=== PATIENT | male | born 1980 | race African-American/Black ===

== ENCOUNTER 2017-10-04 15:18 | Emergency (ER) | payer SELFPAY ==
[~2017-10-04] VITALS: Ht 177.8 cm; Wt 109.8 kg
[~2017-10-04 15:18] MED LIST: [UNRECOGNIZED DRUG - REMARK]
[2017-10-04 15:29] VITALS: BP 156/78
--- NOTE | 2017-10-04 15:42 | NUR ---
PT AMBULATED TO BED 4.
--- NOTE | 2017-10-04 15:45 | NUR ---
37M BIB FAMILY C/O RIGHT LOWER ABDOMINAL PAIN, ACHING, RADIATES TO LEFT LOWER ABDOMEN AND TESTICLES, 07/05 X 3 DAYS; PT STATES NO NAUSEA, NO VOMITING AND NO DIARRHEA AT THIS TIME, BUT STATES HAS HAD CONSTIPATION X 3 DAYS, WITH LAST BOWEL MOVEMENT ON 10/01/17; ABDOMEN SOFT, NON-TENDER, ACTIVE BOWEL SOUNDS X 4 QUADRANTS; PT AA&OX4, PERRLA, BL LUNG SOUNDS CLEAR, RR EVEN/UNLABORED, SKIN IS WARM/DRY/INTACT AT THIS TIME; STEADY GAIT; PT RESTING IN BED WITH HOB ELEVATED AND IN LOWEST POSITION; POSITIONED FOR COMFORT; ER MD MADE AWARE OF STATUS. WILL CONTINUE TO MONITOR.
--- NOTE | 2017-10-04 15:55 | NUR ---
ER MD DR. AMATO EVALUATING PT AT BEDSIDE.
[2017-10-04] MEDS ORDERED: ONDANSETRON 4 MG/2 ML VIAL IVP ONE (16:10)
[2017-10-04] MEDS ORDERED: MORPHINE SULFATE 2 MG/ML SYR IVP ONE (16:10)
[2017-10-04] MEDS ORDERED: MORPHINE SULFATE 4 MG/ML SYR ONE (16:42)
--- NOTE | 2017-10-04 16:49 | NUR ---
PT TAKEN TO CT VIA W/C ACCOMPANIED BY [employer] SUPERVISOR.
[2017-10-04 16:57] LABS: BASOPHILS # (AUTO) 0.3 K/uL (0.00-0.22); BASOPHILS % (AUTO) 3.4 % (0.0-2.0); EOSINOPHILS # (AUTO) 0.2 K/uL (0-0.4); EOSINOPHILS % (AUTO) 1.8 % (0.0-4.0); HEMATOCRIT 40.5 % (36-52); HEMOGLOBIN 13.4 g/dL (12.0-18.0); LYMPHOCYTES # (AUTO) 1.8 K/uL (2.0-11.5); LYMPHOCYTES % (AUTO) 21.4 % (20.5-51.1); MEAN CORPUSCULAR HEMOGLOBIN 30 pg (27-31); MEAN CORPUSCULAR HGB CONC 33 g/dL (33-37); MEAN CORPUSCULAR VOLUME 90 fL (80-94); MONOCYTES # (AUTO) 0.6 K/uL (0.8-1.0); MONOCYTES % (AUTO) 6.9 % (1.7-9.3); NEUTROPHILS # (AUTO) 5.6 K/uL (1.8-7.7); NEUTROPHILS % (AUTO) 66.5 % (42.2-75.2); PLATELET COUNT (AUTO) 244 K/uL (140-450); RED CELL DISTRIBUTION WIDTH 14.1 % (11.6-13.7); WHITE BLOOD COUNT (AUTO) 8.5 K/uL (4.8-10.8)
[2017-10-04 17:05] LABS: APPEARANCE,URINE CLEAR (CLEAR); BILIRUBIN,URINE NEGATIVE (NEGATIVE); BLOOD, URINE NEGATIVE (NEGATIVE); COLOR,URINE YELLOW (YELLOW); LEUKOCYTE ESTERASE ,URINE NEGATIVE (NEGATIVE); NITRITE, URINE NEGATIVE (NEGATIVE); UGLUCOSE NEGATIVE (NEGATIVE)
[2017-10-04 17:18] LABS: ALBUMIN 3.2 g/dL (3.4-5.0); ANION GAP 10.8 (8-16); CARBON DIOXIDE 28.2 mmol/L (21-32); CREATININE 0.8 mg/dL (0.7-1.3); TOTAL BILIRUBIN 0.2 mg/dL (0.0-1.0)
[2017-10-04] MEDS ORDERED: LEVOFLOXACIN 750 MG TAB PO ONE (18:05)
[2017-10-04] MEDS ORDERED: metroNIDAZOLE 500 MG/NS PREMIX 100 ML IV ONE (18:05)
--- NOTE | 2017-10-04 18:30 | NUR ---
PT APPEARS TO BE RESTING COMFORTABLY IN BED; RR EVEN/UNLABORED; POSITIONED FOR COMFORT; WILL CONTINUE TO MONITOR.
--- NOTE | 2017-10-04 19:03 | NUR ---
Pt report given to ZEINAB VIGIL. Transfer of care at this time.
--- NOTE | 2017-10-04 19:39 | NUR ---
IV removed, catheter intact and site benign. Applied folded 4x4 gauze and tape to stop bleeding.
[2017-10-04 19:40] VITALS: BP 134/86
--- NOTE | 2017-10-04 19:40 | NUR ---
Patient discharged with v/s stable. Written and verbal after care instructions given and explained. Patient alert, oriented and verbalized understanding of instructions. Ambulatory with steady gait. All questions addressed prior to discharge. ID band removed. Patient advised to follow up with PMD. Rx of Tramadol 50mg, Flagyl 500mg, and Cipro 500mg given. Patient educated on indication of medication including possible reaction and side effects. Opportunity to ask questions provided and answered.
== END 2017-10-04 19:40 | disposition home or self-care (01) ==
LOC: MED 15:18
DX: K57.92 Diverticulitis of intestine, part unspecified, without perforation or abscess without bleeding (principal); Z88.8 Allergy status to other drugs, medicaments and biological substances
CPT/HCPCS: 36415; 74176; 80053; 81003; 83690; 85025; 96365; 96375; 99285; J2270; J2405; J3490

== ENCOUNTER 2019-04-17 22:54 | Emergency (ER) | payer SELFPAY ==
[~2019-04-17] VITALS: Ht 172.7 cm; Wt 111.1 kg
[2019-04-17 23:00] VITALS: BP 159/89
--- NOTE | 2019-04-17 23:00 | NUR ---
PT TAKEN TO BED 6
--- NOTE | 2019-04-17 23:11 | NUR ---
PT BIB SELF TO THE ED WITH THE CHIEF C/O FACIAL PAIN X 2 DAYS. SWOLLEN RIGHT SIDE OF THE FACE. PT STATES HE HAD TOOTCHACHE BEFORE, SYMPTOMS GOT WORSE AND GOT SWOLLEN FACE. PT HAS NOT SEEN BY DENTIST. DENIES PUS OR BLEEDING GUM. PT TOOK MOTRIN AN HOUR AGO. STATES PAIN OF 8/10 AT THIS TIME. DENIES ANY OTHER PROBLEM.
--- NOTE | 2019-04-17 23:18 | NUR ---
PT BEING EVALUATED BY BENNIE MUNGUIA.
--- NOTE | 2019-04-17 23:18 | NUR ---
Dr. Velazco evaluating patient at bedside.
[2019-04-17] MEDS ORDERED: PENICILLIN V POTASSIUM 250 MG TAB PO ONE (23:25)
--- NOTE | 2019-04-18 00:13 | NUR ---
Patient discharged with v/s stable. Written and verbal after care instructions given and explained. Patient alert, oriented and verbalized understanding of instructions. Ambulatory with steady gait. All questions addressed prior to discharge. ID band removed. Patient advised to follow up with PMD. Rx of NORCO, PENICILLIN, BENADRYL AND IBUPROFEN given. Patient educated on indication of medication including possible reaction and side effects. Opportunity to ask questions provided and answered.
[2019-04-18 00:14] VITALS: BP 155/99
== END 2019-04-18 00:13 | disposition home or self-care (01) ==
LOC: MED 22:54
DX: K04.7 Periapical abscess without sinus (principal); Z88.8 Allergy status to other drugs, medicaments and biological substances
CPT/HCPCS: 99283; Q0163

== ENCOUNTER 2019-07-21 19:08 | Emergency (ER) | payer SELFPAY ==
[~2019-07-21] VITALS: Ht 172.7 cm; Wt 109.3 kg
[2019-07-21 19:14] VITALS: BP 165/81
--- NOTE | 2019-07-21 19:14 | NUR ---
PT AMBULATED TO BED 03 WITH STEADY GAIT.
--- NOTE | 2019-07-21 19:30 | NUR ---
39 YO M BIB SELF FROM HOME PRESENTS TO ED C/O N/V X 2-3 TODAY. PT STATES "I VOMITED BLOOD YESTERDAY". PT ALSO C/O URINARY PAIN AND BURNING X 2-3 WEEKS. ALSO REPORTS 10/10 RIGHT SIDE PINCHING LOWER BACK PAIN X 3 DAYS. PT STATES HE WORKS IN A [employer] SO HE MAY HAVE STRAINED HIS BACK. PT ALSO REPORTS FEVER, CHILLS. -- PT AWAKE, A/O X 4, CALM, COOPERATIVE. ANSWERING QUESTIONS APPROPRIATELY. BEHAVIOR AGE APPROPRIATE. -- SKIN NORMAL IN COLOR, WARM, DRY. BREATHING EVEN, UNLABORED. PMH-- DENIES
--- NOTE | 2019-07-21 19:47 | NUR ---
DR. BRIGHT BEDSIDE EVALUATING PT
[2019-07-21 19:49] LABS: APPEARANCE,URINE SL CLOUDY (CLEAR); BILIRUBIN,URINE NEGATIVE (NEGATIVE); BLOOD, URINE 3+ (NEGATIVE); COLOR,URINE YELLOW (YELLOW); LEUKOCYTE ESTERASE ,URINE 3+ (NEGATIVE); NITRITE, URINE POSITIVE (NEGATIVE); UGLUCOSE NEGATIVE (NEGATIVE)
[2019-07-21 19:59] LABS: RBC,URINE 0-5 /HPF (0-5); WBC,URINE TOO MANY TO COUNT /HPF (0-5)
--- NOTE | 2019-07-21 20:05 | NUR ---
LAB AT BEDSIDE.
--- NOTE | 2019-07-21 20:11 | NUR ---
PT TAKEN TO CT VIA [facility].
[2019-07-21 20:21] LABS: BASOPHILS # (AUTO) 0.1 K/uL (0.00-0.22); BASOPHILS % (AUTO) 0.7 % (0.0-2.0); EOSINOPHILS % (AUTO) 0.3 % (0.0-4.0); HEMATOCRIT 39.8 % (36-52); HEMOGLOBIN 13.6 g/dL (12.0-18.0); LYMPHOCYTES # (AUTO) 1.7 K/uL (2.0-11.5); LYMPHOCYTES % (AUTO) 14.3 % (20.5-51.1); MEAN CORPUSCULAR HEMOGLOBIN 30 pg (27-31); MEAN CORPUSCULAR HGB CONC 34 g/dL (33-37); MEAN CORPUSCULAR VOLUME 86.4 fL (80-94); MONOCYTES # (AUTO) 1.4 K/uL (0.8-1.0); MONOCYTES % (AUTO) 11.8 % (1.7-9.3); NEUTROPHILS # (AUTO) 8.4 K/uL (1.8-7.7); NEUTROPHILS % (AUTO) 72.9 % (42.2-75.2); PLATELET COUNT (AUTO) 272 K/uL (140-450); RED BLOOD CELL COUNT(AUTO) 4.61 MIL/uL (4.20-6.10); RED CELL DISTRIBUTION WIDTH 14.1 % (11.6-13.7); WHITE BLOOD COUNT (AUTO) 11.6 K/uL (4.8-10.8)
--- NOTE | 2019-07-21 20:26 | NUR ---
PT RETURNED FROM CT
[2019-07-21 20:28] LABS: ANION GAP 14.3 (8-16); CARBON DIOXIDE 25.3 mmol/L (21-32); POTASSIUM 3.6 mmol/L (3.5-5.1)
[2019-07-21 20:33] LABS: ALBUMIN 3.2 g/dL (3.4-5.0); TOTAL BILIRUBIN 0.3 mg/dL (0.0-1.0)
[2019-07-21 20:42] LABS: PROTHROMBIN TIME 9.8 secs (10.8-13.4)
[2019-07-21] MEDS ORDERED: NACL 0.9% 1,000 ML IV ONE (20:50)
[2019-07-21] MEDS ORDERED: cefTRIAXone 1,000 MG VIAL ONE ×2 (21:08→22:29)
--- NOTE | 2019-07-21 21:30 | NUR ---
PT SLEEPING COMFORTABLY IN BED. AROUSABLE TO VERBAL STIMULI. SKIN NORMAL, WARM, DRY. BREATHING EVEN, UNLABORED.
[2019-07-21] MEDS ORDERED: cefTRIAXone 250 MG in LIDOCAINE MPF 1% - 5 mL VIAL 0.9 ML IM ONE (22:10)
[2019-07-21] MEDS ORDERED: AZITHROMYCIN 250 MG TAB PO ONE (22:10)
[2019-07-21 22:45] VITALS: BP 147/86
[2019-07-24 06:08] LABS: CHLAMYDIA TRACHOMATIS AMP DNA Negative (Negative)
== END 2019-07-21 22:45 | disposition home or self-care (01) ==
LOC: MED 19:08
DX: N39.0 Urinary tract infection, site not specified (principal); A64 Unspecified sexually transmitted disease; Z88.8 Allergy status to other drugs, medicaments and biological substances
CPT/HCPCS: 36415; 74176; 80053; 81001; 83605; 85025; 85610; 86886; 86900; 86901; 87040; 87086; 96365; 96372; 99284; J0696; J2001

== ENCOUNTER 2019-09-16 19:02 | Emergency (ER) | payer SELFPAY ==
[~2019-09-16] VITALS: Ht 170.2 cm; Wt 86.2 kg
[2019-09-16 19:18] VITALS: BP 139/74
--- NOTE | 2019-09-16 19:18 | NUR ---
PT AMBULATED TO BED 11.
--- NOTE | 2019-09-16 19:22 | NUR ---
PT C/O LT TESTICLE SWELLING AND PAIN X2 DAYS. PT STATES BROWN PENILE DISCHARGE X3 DAYS. SCROTUM SENSITIVE TO TOUCH. PT STATES 2/1O SHARP PAIN. PT STATES HE HAS BEEN TAKING AMOXICILLIN A FAMILY MEMBER GAVE HIM SUNDAY. RR EVEN AND UNLABORED. PT CALM AND PLEASANT IN BED. VSS. MEDHX: DENIES ALLERGIES: LISINOPRIL
[2019-09-16] MEDS ORDERED: ONDANSETRON 4 MG/2 ML VIAL IVP ONE (19:25)
[2019-09-16] MEDS ORDERED: NACL 0.9% 1,000 ML IV ONE (19:25)
[2019-09-16] MEDS ORDERED: MORPHINE SULFATE 4 MG/ML SYR IVP ONE (19:25)
[2019-09-16 20:20] LABS: BASOPHILS % (AUTO) 0.2 % (0.0-2.0); EOSINOPHILS % (AUTO) 0.1 % (0.0-4.0); HEMATOCRIT 41.2 % (36-52); LYMPHOCYTES # (AUTO) 1.6 K/uL (2.0-11.5); LYMPHOCYTES % (AUTO) 10.5 % (20.5-51.1); MEAN CORPUSCULAR HEMOGLOBIN 29 pg (27-31); MEAN CORPUSCULAR HGB CONC 34 g/dL (33-37); MEAN CORPUSCULAR VOLUME 86.4 fL (80-94); MONOCYTES # (AUTO) 1.7 K/uL (0.8-1.0); MONOCYTES % (AUTO) 11.1 % (1.7-9.3); NEUTROPHILS # (AUTO) 11.8 K/uL (1.8-7.7); NEUTROPHILS % (AUTO) 78.1 % (42.2-75.2); PLATELET COUNT (AUTO) 237 K/uL (140-450); RED BLOOD CELL COUNT(AUTO) 4.77 MIL/uL (4.20-6.10); RED CELL DISTRIBUTION WIDTH 16.6 % (11.6-13.7); WHITE BLOOD COUNT (AUTO) 15.1 K/uL (4.8-10.8)
[2019-09-16 20:32] LABS: APPEARANCE,URINE CLOUDY (CLEAR); BILIRUBIN,URINE NEGATIVE (NEGATIVE); BLOOD, URINE 2+ (NEGATIVE); COLOR,URINE AMBER (YELLOW); LEUKOCYTE ESTERASE ,URINE 2+ (NEGATIVE); NITRITE, URINE POSITIVE (NEGATIVE); UGLUCOSE NEGATIVE (NEGATIVE)
--- NOTE | 2019-09-16 20:38 | NUR ---
PT RESTING IN BED WATCHING TV ON PHONE IN COMFORTABLE POSITON. STATES NO DISCOMFORT AT THIS TIME. BED LOCKED AND POSITIONED LOW. VSS. WILL CONTINUE TO MONITOR.
[2019-09-16 20:50] LABS: WBC,URINE TOO MANY TO COUNT /HPF (0-5)
[2019-09-16 21:02] LABS: ALBUMIN 3.4 g/dL (3.4-5.0); ANION GAP 15.5 (8-16); CARBON DIOXIDE 25.1 mmol/L (21-32); CREATININE 0.9 mg/dL (0.7-1.3); POTASSIUM 3.6 mmol/L (3.5-5.1); TOTAL BILIRUBIN 1.1 mg/dL (0.0-1.0)
[2019-09-16] MEDS ORDERED: cefTRIAXone 250 MG in LIDOCAINE MPF 1% 0.9 ML IM ONE (22:10)
[2019-09-16] MEDS ORDERED: AZITHROMYCIN 250 MG TAB PO ONE (22:10)
[2019-09-16 22:56] VITALS: BP 133/76
--- NOTE | 2019-09-16 22:56 | NUR ---
Patient discharged with v/s stable. Written and verbal after care instructions given and explained. Patient alert, oriented and verbalized understanding of instructions. Ambulatory with to home. All questions addressed prior to discharge. ID band removed. Patient advised to follow up with PMD. Rx of NAPROSYN, NORCO, AND DOXYCYCLINE given. Patient educated on indication of medication including possible reaction and side effects. Opportunity to ask questions provided and answered.
[2019-09-19 06:08] LABS: CHLAMYDIA TRACHOMATIS AMP DNA Negative (Negative)
== END 2019-09-16 22:56 | disposition home or self-care (01) ==
LOC: MED 19:02
DX: N39.0 Urinary tract infection, site not specified (principal); N50.812 Left testicular pain; Z88.8 Allergy status to other drugs, medicaments and biological substances
CPT/HCPCS: 36415; 76870; 80053; 81001; 85025; 87086; 87186; 87491; 96372; 96374; 96375; 99284; J0696; J2001; J2270; J2405; J7030; Q0092

== ENCOUNTER 2020-06-08 11:29 | Emergency (ER) | payer SELFPAY ==
[~2020-06-08] VITALS: Ht 172.7 cm; Wt 106.6 kg
--- NOTE | 2020-06-08 11:39 | NUR ---
PT AMBULATED TO ER BED 01
[2020-06-08 11:51] VITALS: BP 147/89
--- NOTE | 2020-06-08 13:04 | NUR ---
pt pending ultrasound--testicular
[2020-06-08] MEDS ORDERED: cefTRIAXone 250 MG in LIDOCAINE MPF 1% 0.9 ML IM ONE (14:40)
[2020-06-08] MEDS ORDERED: LIDOCAINE MPF 1% 5 ML ONE (15:14)
[2020-06-08] MEDS ORDERED: cefTRIAXone 250 MG VIAL ONE (15:14)
--- NOTE | 2020-06-08 15:25 | NUR ---
Patient discharged with v/s stable. Written and verbal after care instructions given and explained. Patient alert, oriented and verbalized understanding of instructions. Ambulatory with steady gait. All questions addressed prior to discharge. ID band removed. Patient advised to follow up with PMD. Rx of doxycycline/ norco given. Patient educated on indication of medication including possible reaction and side effects. Opportunity to ask questions provided and answered.
[2020-06-08 15:26] VITALS: BP 129/79
[2020-06-08 15:28] LABS: APPEARANCE,URINE SL CLOUDY (CLEAR); BILIRUBIN,URINE NEGATIVE (NEGATIVE); BLOOD, URINE TRACE-I (NEGATIVE); COLOR,URINE YELLOW (YELLOW); LEUKOCYTE ESTERASE ,URINE 2+ (NEGATIVE); NITRITE, URINE NEGATIVE (NEGATIVE); PH,URINE 6.5 (5.0-9.0); UGLUCOSE NEGATIVE (NEGATIVE)
[2020-06-08 15:44] LABS: RBC,URINE 0-5 /HPF (0-5)
[2020-06-10 06:07] LABS: CHLAMYDIA TRACHOMATIS AMP DNA Negative (Negative)
== END 2020-06-08 15:25 | disposition home or self-care (01) ==
LOC: MED 11:29
DX: N45.1 Epididymitis (principal); N43.3 Hydrocele, unspecified; Z88.8 Allergy status to other drugs, medicaments and biological substances
CPT/HCPCS: 36415; 76870; 81001; 87086; 87186; 87491; 96372; 99284; J0696; J2001; Q0092

== ENCOUNTER 2022-04-20 14:03 | Emergency (ER) | payer MEDICAID ==
[~2022-04-20] VITALS: Ht 172.7 cm; Wt 123.4 kg
[2022-04-20 14:09] VITALS: BP 138/79
--- NOTE | 2022-04-20 14:15 | NUR ---
C/C LEFT ARM PAIN X 1 MONTH WITH OCCASIONAL SWELLING, NO SWELLING AT THIS TIME. PATIENT ALSO COMPLAINS OF FREQUENT URINATION X 4 DAYS AND WHITE PENILE DISCHARGE.
--- NOTE | 2022-04-20 14:15 | NUR ---
PLACED INTO BED 1
--- NOTE | 2022-04-20 15:01 | NUR ---
URINE SAMPLE COLLECTED
--- NOTE | 2022-04-20 15:10 | NUR ---
FERN VALERA AT BEDSIDE EXAMINING PATIENT.
--- NOTE | 2022-04-20 15:16 | NUR ---
URINE SENT OUT TO LAB
[2022-04-20] MEDS ORDERED: cefTRIAXone 500 MG in LIDOCAINE MPF 1% 1 ML IM ONE (15:20)
--- NOTE | 2022-04-20 15:20 | NUR ---
SPLINT APPLIED TO LEFT WRIST
[2022-04-20] MEDS ORDERED: cefTRIAXone 500 MG VIAL ONE (15:23)
[2022-04-20] MEDS ORDERED: LIDOCAINE MPF 1% 5 ML ONE (15:24)
--- NOTE | 2022-04-20 15:29 | NUR ---
PATIENT MEDICATED PER ORDER, TOLERATED WELL.
[2022-04-20] MEDS ORDERED: DOXY-565 PO (15:46)
[2022-04-20] MEDS ORDERED: PYR100 PO (15:46)
[2022-04-20] MEDS ORDERED: CEPH500C16 PO (15:46)
[2022-04-20] MEDS ORDERED: IBUP-2213 PO (15:46)
[2022-04-20 15:54] VITALS: BP 121/78
--- NOTE | 2022-04-20 15:55 | NUR ---
Patient discharged with v/s stable. Written and verbal after care instructions given and explained. Patient verbalized understanding. Ambulatory with steady gait. All questions addressed prior to discharge. Advised to follow up with PMD.
== END 2022-04-20 15:55 | disposition home or self-care (01) ==
LOC: MED 14:03
DX: N39.0 Urinary tract infection, site not specified (principal); M77.8 Other enthesopathies, not elsewhere classified; Z20.2 Contact with and (suspected) exposure to infections with a predominantly sexual mode of transmission; Z88.8 Allergy status to other drugs, medicaments and biological substances; Z79.899 Other long term (current) drug therapy
CPT/HCPCS: 29125; 87086; 87491; 96372; 99283; J0696; J2001

== ENCOUNTER 2022-06-10 21:42 | Emergency (ER) | payer MEDICAID ==
[~2022-06-10] VITALS: Ht 172.7 cm; Wt 122.9 kg
[~2022-06-10 21:42] MED LIST changes: +CEPH500C16 PO; +DOXY-565 PO; +IBUP-2213 PO; +PYR100 PO
[2022-06-10 21:57] VITALS: BP 124/87
--- NOTE | 2022-06-10 21:57 | NUR ---
42 Y/O MALE BIBS FROM HOME, C/O RIGHT LOWER RIB PAIN SINCE LAST NIGHT. 10/10 SHARP PAIN WITH SOB. PT HAS INJURY WRAPPED FOR COMFORT. PT STATES HE WAS WRESTLING WITH FAMILY AND FELT PAIN TO HIS RIGHT RIB. DENIES COUGH, CP, OR FEVER. A/OX4, GCS-15; AMBULATORY; SPEAKING IN FULL SENTENCES. NO PMH ALL: LISINOPRIL NO MEDS
--- NOTE | 2022-06-10 23:14 | NUR ---
dr breen assessing pt in triage rooom
[2022-06-10] MEDS ORDERED: HYDROcodone/APAP 5/325 MG 1 TAB TAB PO ONE (23:15)
[2022-06-10] MEDS ORDERED: KETOROLAC 30 MG/ML VIAL IM ONE (23:15)
[2022-06-10] MEDS ORDERED: NAPR-54 PO (23:17)
[2022-06-10] MEDS ORDERED: ACET-8386 PO (23:17)
[2022-06-10 23:35] VITALS: BP 124/87
--- NOTE | 2022-06-10 23:35 | NUR ---
Patient discharged with v/s stable. Written and verbal after care instructions given and explained. Patient alert, oriented and verbalized understanding of instructions. Ambulatory with steady gait. All questions addressed prior to discharge. ID band removed. Patient advised to follow up with PMD. Rx of naprosyn, hydrocodone given. Patient educated on indication of medication including possible reaction and side effects. Opportunity to ask questions provided and answered.
== END 2022-06-10 23:33 | disposition home or self-care (01) ==
LOC: MED 21:42
DX: S20.211A Contusion of right front wall of thorax, initial encounter (principal); Z79.1 Long term (current) use of non-steroidal anti-inflammatories (NSAID); Z79.891 Long term (current) use of opiate analgesic; Z79.899 Other long term (current) drug therapy; Z79.2 Long term (current) use of antibiotics; Z88.8 Allergy status to other drugs, medicaments and biological substances; W50.0XXA Accidental hit or strike by another person, initial encounter; Y93.89 Activity, other specified; Y92.89 Other specified places as the place of occurrence of the external cause; Y99.8 Other external cause status
CPT/HCPCS: 71101; 96372; 99283; J1885

== ENCOUNTER 2022-08-05 14:42 | Emergency (ER) | payer MEDICAID ==
[~2022-08-05] VITALS: Ht 172.7 cm; Wt 117.9 kg
[~2022-08-05 14:42] MED LIST changes: +ACET-8386 PO; +NAPR-54 PO
[2022-08-05 14:43] VITALS: BP 156/85
[2022-08-05] MEDS ORDERED: DOXY-690 PO (15:07)
[2022-08-05] MEDS ORDERED: LIDOCAINE MPF 1% 5 ML ONE (15:10)
[2022-08-05] MEDS ORDERED: cefTRIAXone 500 MG VIAL ONE (15:10)
[2022-08-05] MEDS: cefTRIAXone 500 MG in LIDOCAINE MPF 1% 1 ML IM ONE (15:15)
[2022-08-05 17:06] LABS: APPEARANCE,URINE CLEAR (CLEAR); BILIRUBIN,URINE NEGATIVE (NEGATIVE); BLOOD, URINE TRACE-I (NEGATIVE); COLOR,URINE YELLOW (YELLOW); LEUKOCYTE ESTERASE ,URINE 1+ (NEGATIVE); NITRITE, URINE NEGATIVE (NEGATIVE); UGLUCOSE NEGATIVE (NEGATIVE)
[2022-08-05 17:22] LABS: RBC,URINE NONE SEEN /HPF (0-5)
[2022-08-05 17:23] LABS: TRICHOMONAS,URINE None Seen /HPF (None Seen); WBC,URINE 20-60 /HPF (0-5); YEAST,URINE None Seen /HPF (None Seen)
== END 2022-08-05 15:33 | disposition home or self-care (01) ==
LOC: MED 14:42
DX: N39.0 Urinary tract infection, site not specified (principal); R36.9 Urethral discharge, unspecified; Z11.3 Encounter for screening for infections with a predominantly sexual mode of transmission
CPT/HCPCS: 81001; 87086; 87491; 96372; 99283; J0696; J2001; 81002

== ENCOUNTER 2022-10-02 19:13 | Emergency (ER) | payer MEDICAID ==
[~2022-10-02] VITALS: Ht 172.7 cm; Wt 117.9 kg
[~2022-10-02 19:13] MED LIST changes: -DOXY-565 PO; +DOXY-690 PO; +DOXY-745 PO
[2022-10-02 19:49] VITALS: BP 150/86
--- NOTE | 2022-10-02 19:51 | NUR ---
TO LOBBY A/W BED AMBULATORY
--- NOTE | 2022-10-02 23:18 | NUR ---
Dr. Ramirez examining patient.
[2022-10-02] MEDS ORDERED: NAPR-54 PO (23:25)
[2022-10-02] MEDS ORDERED: ACET-8386 PO (23:25)
[2022-10-02] MEDS ORDERED: DOXY-690 PO (23:25)
[2022-10-02] MEDS ORDERED: DOXYCYCLINE 100 MG CAP PO STA (23:26)
[2022-10-02] MEDS ORDERED: CEPH-588 PO (23:29)
[2022-10-02] MEDS ORDERED: KETOROLAC 30 MG/ML VIAL IM ONE (23:30)
[2022-10-02] MEDS ORDERED: cefTRIAXone 1,000 MG VIAL ONE (23:34)
[2022-10-02] MEDS ORDERED: LIDOCAINE MPF 1% 5 ML ONE (23:36)
[2022-10-02] MEDS ORDERED: cefTRIAXone 1,000 MG in LIDOCAINE MPF 1% 2.1 ML IM ONE (23:40)
[2022-10-02 23:49] LABS: APPEARANCE,URINE HAZY (CLEAR); BILIRUBIN,URINE NEGATIVE (NEGATIVE); BLOOD, URINE 3+ (NEGATIVE); COLOR,URINE YELLOW (YELLOW); LEUKOCYTE ESTERASE ,URINE 3+ (NEGATIVE); NITRITE, URINE NEGATIVE (NEGATIVE); UGLUCOSE NEGATIVE (NEGATIVE)
[2022-10-03 00:02] LABS: WBC,URINE TOO MANY TO COUNT /HPF (0-5)
[2022-10-03 00:16] VITALS: BP 150/86
--- NOTE | 2022-10-03 00:16 | NUR ---
Patient discharged with v/s stable. Written and verbal after care instructions given and explained. Patient alert, oriented and verbalized understanding of instructions. Ambulatory with steady gait. All questions addressed prior to discharge. ID band removed. Patient advised to follow up with PMD. Rx of KEFLEX, NAPROSYN, NORCO, VIBRAMYCIN given. Patient educated on indication of medication including possible reaction and side effects. Opportunity to ask questions provided and answered.
== END 2022-10-03 00:16 | disposition home or self-care (01) ==
LOC: MED 19:13
DX: N45.3 Epididymo-orchitis (principal); N39.0 Urinary tract infection, site not specified; Z79.899 Other long term (current) drug therapy; Z98.890 Other specified postprocedural states; Z88.8 Allergy status to other drugs, medicaments and biological substances
CPT/HCPCS: 76870; 81001; 87086; 87491; 96372; 99284; J0696; J1885; J2001; Q0092

== ENCOUNTER 2023-01-24 22:11 | Emergency (ER) | payer MEDICAID ==
[~2023-01-24] VITALS: Ht 172.7 cm; Wt 121.2 kg
[~2023-01-24 22:11] MED LIST changes: -ACET-8386 PO; +ACET-8905 PO; +CEPH-588 PO
[2023-01-24 22:18] VITALS: BP 166/98
--- NOTE | 2023-01-24 22:20 | NUR ---
Pt rc'd in bed 2, Pt came in with, painful urination x2 days- frequency, retention, burning. abscess on the buttock. has taken ibuprofen. pmh: denies allergies: lisinopril
--- NOTE | 2023-01-24 22:24 | NUR ---
pt to bed 2
[2023-01-24 22:48] LABS: APPEARANCE,URINE CLEAR (CLEAR); BILIRUBIN,URINE NEGATIVE (NEGATIVE); BLOOD, URINE 3+ (NEGATIVE); COLOR,URINE YELLOW (YELLOW); LEUKOCYTE ESTERASE ,URINE 2+ (NEGATIVE); NITRITE, URINE NEGATIVE (NEGATIVE); PH,URINE 6.5 (5.0-9.0); UGLUCOSE NEGATIVE (NEGATIVE)
[2023-01-24 22:52] LABS: RBC,URINE 0-5 /HPF (0-5); WBC,URINE >25 (MANY) /HPF (0-5)
[2023-01-24] MEDS ORDERED: CEPH-588 PO (23:14)
[2023-01-24] MEDS ORDERED: PYR100 PO (23:14)
[2023-01-24 23:18] VITALS: BP 166/98
--- NOTE | 2023-01-24 23:18 | NUR ---
Patient discharged with v/s stable. Written and verbal after care instructions given and explained. Patient alert, oriented and verbalized understanding of instructions. Ambulatory with steady gait. All questions addressed prior to discharge. ID band removed. Patient advised to follow up with PMD. Rx of keflex & pyridium given. Patient educated on indication of medication including possible reaction and side effects. Opportunity to ask questions provided and answered.
== END 2023-01-24 23:18 | disposition home or self-care (01) ==
LOC: MED 22:11
DX: N39.0 Urinary tract infection, site not specified (principal); Z79.899 Other long term (current) drug therapy; Z79.2 Long term (current) use of antibiotics; Z79.891 Long term (current) use of opiate analgesic; Z88.8 Allergy status to other drugs, medicaments and biological substances
CPT/HCPCS: 81001; 87086; 99283

== ENCOUNTER 2023-02-12 22:51 | Emergency (ER) | payer MEDICAID ==
[~2023-02-12] VITALS: Ht 172.7 cm; Wt 119.3 kg
[2023-02-12 23:10] VITALS: BP 160/70
[2023-02-13] MEDS ORDERED: IBUPROFEN 600 MG TAB PO ONE (01:00)
[2023-02-13] MEDS ORDERED: SULFAMETH/TRIMETH DS 800/160MG 1 TAB PO ONE (01:00)
--- NOTE | 2023-02-13 01:24 | NUR ---
MD Olson at bedside for I&D procedure.
[2023-02-13] MEDS ORDERED: SULF-59 PO (02:07)
[2023-02-13] MEDS ORDERED: IBUP-2218 PO (02:07)
--- NOTE | 2023-02-13 02:10 | NUR ---
Patient discharged with v/s stable. Written and verbal after care instructions given and explained. Patient alert, oriented and verbalized understanding of instructions. Ambulatory with steady gait. All questions addressed prior to discharge. ID band removed. Patient advised to follow up with PMD. Rx of MOTRIN AND BACTRIM given. Patient educated on indication of medication including possible reaction and side effects. Opportunity to ask questions provided and answered.
== END 2023-02-13 02:10 | disposition home or self-care (01) ==
LOC: MED 22:51
DX: L02.31 Cutaneous abscess of buttock (principal); Z98.890 Other specified postprocedural states; Z79.899 Other long term (current) drug therapy; Z79.1 Long term (current) use of non-steroidal anti-inflammatories (NSAID); Z79.2 Long term (current) use of antibiotics; Z79.891 Long term (current) use of opiate analgesic; Z88.8 Allergy status to other drugs, medicaments and biological substances
CPT/HCPCS: 99284

== ENCOUNTER 2023-02-15 20:50 | Emergency (ER) | payer MEDICAID ==
[~2023-02-15] VITALS: Ht 172.7 cm; Wt 117.9 kg
[~2023-02-15 20:50] MED LIST changes: +IBUP-2218 PO; +SULF-59 PO
[2023-02-15 21:10] VITALS: BP 148/82
--- NOTE | 2023-02-15 21:16 | NUR ---
TO LOBBY FOLLOWING TRIAGE
--- NOTE | 2023-02-16 00:05 | NUR ---
PT TAKEN TO BED 2
[2023-02-16 00:25] VITALS: BP 148/82
== END 2023-02-16 00:25 | disposition home or self-care (01) ==
LOC: MED 20:50
DX: L03.317 Cellulitis of buttock (principal); Z79.1 Long term (current) use of non-steroidal anti-inflammatories (NSAID); Z79.2 Long term (current) use of antibiotics; Z79.891 Long term (current) use of opiate analgesic; Z79.899 Other long term (current) drug therapy; Z88.8 Allergy status to other drugs, medicaments and biological substances
CPT/HCPCS: 10120; 99282; 99285

== ENCOUNTER 2023-08-25 16:44 | Inpatient (IN) | payer SELFPAY ==
[~2023-08-25] VITALS: Ht 172.7 cm; Wt 102.1 kg
[2023-08-25 16:48] VITALS: BP 149/70; PULSE 97; RESP 14; TEMP 98.6; O2SAT 99
[2023-08-25 20:06] LABS: BILIRUBIN,URINE NEGATIVE (NEGATIVE); BLOOD, URINE 3+ (NEGATIVE); COLOR,URINE YELLOW (YELLOW); LEUKOCYTE ESTERASE ,URINE 2+ (NEGATIVE); NITRITE, URINE NEGATIVE (NEGATIVE); PH,URINE 5.5 (5.0-9.0); PROTEIN,URINE 2+ (NEGATIVE); UGLUCOSE NEGATIVE (NEGATIVE)
[2023-08-25 20:08] LABS: APPEARANCE,URINE CLOUDY (CLEAR)
[2023-08-25 20:27] LABS: BACTERIA,URINE 2+ /HPF (None Seen); SQUAMOUS EPITHELIAL CELL,UR None Seen /LPF (0-3 (FEW)); WBC,URINE TOO MANY TO COUNT /HPF (0-5)
[2023-08-25] MEDS ORDERED: KETOROLAC 30 MG/ML VIAL IVP ONE (20:55)
[2023-08-25] MEDS ORDERED: ONDANSETRON 4 MG/2 ML VIAL IVP ONE (20:55)
[2023-08-25 21:29] LABS: HEMATOCRIT 36.8 % (36-52); HEMOGLOBIN 12.7 g/dL (12.0-18.0); MEAN CORPUSCULAR HEMOGLOBIN 31 pg (27-31); MEAN CORPUSCULAR HGB CONC 35 g/dL (33-37); PLATELET COUNT (AUTO) 227 K/uL (140-450); RED BLOOD CELL COUNT(AUTO) 4.09 MIL/uL (4.20-6.10); RED CELL DISTRIBUTION WIDTH 14.4 % (11.6-13.7); WHITE BLOOD COUNT (AUTO) 24.9 K/uL (4.8-10.8)
[2023-08-25 21:47] LABS: ALBUMIN 3.2 g/dL (3.4-5.0); CALCIUM 9.1 mg/dL (8.5-10.1); CARBON DIOXIDE 24.2 mmol/L (21-32); CREATININE 0.9 mg/dL (0.6-1.3); POTASSIUM 3.2 mmol/L (3.5-5.1); TOTAL BILIRUBIN 0.7 mg/dL (0.0-1.0); TOTAL PROTEIN, SERUM 7.6 g/dL (6.4-8.2)
[2023-08-25 21:55] LABS: LYMPHOCYTES % (MANUAL) 16 % (20-46); MONOCYTES % (MANUAL) 3 % (5-12); PLATELET ESTIMATE ADEQUATE
[2023-08-26] VITALS (7 sets, daily range): BP systolic 128–155; BP diastolic 72–80; PULSE 82–93; RESP 18–19; TEMP 96.9–99.6; O2SAT 95–100
[2023-08-26] MEDS ORDERED: PIPERACILLIN/TAZOBACTAM 3.375 GM in DEXTROSE 5% 50 ML IV ONE (01:25)
[2023-08-26] MEDS ORDERED: NACL 0.9% 1,000 ML IV ONE (01:30)
[2023-08-26] MEDS ORDERED: PIPERACILLIN/TAZOBACTAM 3.375 GM VIAL IV ONE (01:40)
[2023-08-26] MEDS ORDERED: ACETAMINOPHEN 325 MG TAB PO PRN (07:40)
[2023-08-26] MEDS ORDERED: MAG SULF 2000 MG/WATER PREMIX 50 ML IV PRN (07:40)
[2023-08-26] MEDS ORDERED: MORPHINE SULFATE 2 MG/ML SYR IVP PRN (07:40)
[2023-08-26] MEDS ORDERED: POTASSIUM CHLORIDE 10 MEQ TABER PO PRN (07:40)
[2023-08-26] MEDS ORDERED: LORazepam 2 MG/ML VIAL IVP PRN (07:40)
[2023-08-26] MEDS ORDERED: ONDANSETRON 4 MG/2 ML VIAL IVP PRN (07:40)
[2023-08-26] MEDS ORDERED: DOCUSATE SODIUM 100 MG GELCAP PO PRN (07:40)
[2023-08-26] MEDS ORDERED: ZOLPIDEM 10 MG TAB PO PRN (07:40)
[2023-08-26] MEDS: MORPHINE SULFATE 2 MG/ML SYR IVP PRN ×2 (08:47→20:29)
[2023-08-26] MEDS: PIPERACILLIN/TAZOBACTAM 3.375 GM in DEXTROSE 5% 50 ML IV SCH ×3 (13:12→23:44)
[2023-08-26] MEDS: metroNIDAZOLE 500 MG/NS PREMIX 100 ML IV SCH ×2 (14:25→20:30)
[2023-08-27 04:00] VITALS: BP 153/94; PULSE 76; RESP 19; TEMP 97.5; O2SAT 100
[2023-08-27] MEDS: metroNIDAZOLE 500 MG/NS PREMIX 100 ML IV SCH ×3 (04:29→20:42)
[2023-08-27] MEDS: PIPERACILLIN/TAZOBACTAM 3.375 GM in DEXTROSE 5% 50 ML IV SCH ×3 (05:37→17:03)
[2023-08-27] MEDS: MORPHINE SULFATE 2 MG/ML SYR IVP PRN ×3 (05:38→16:01)
[2023-08-27 06:12] LABS: BASOPHILS % (AUTO) 0.2 % (0.0-2.0); EOSINOPHILS # (AUTO) 0.1 K/uL (0-0.4); EOSINOPHILS % (AUTO) 0.5 % (0.0-4.0); HEMATOCRIT 35.3 % (36-52); LYMPHOCYTES # (AUTO) 1.9 K/uL (2.0-11.5); LYMPHOCYTES % (AUTO) 13.4 % (20.5-51.1); MEAN CORPUSCULAR HEMOGLOBIN 31 pg (27-31); MEAN CORPUSCULAR HGB CONC 34 g/dL (33-37); MEAN CORPUSCULAR VOLUME 91.4 fL (80-94); MONOCYTES # (AUTO) 1.5 K/uL (0.8-1.0); MONOCYTES % (AUTO) 10.3 % (1.7-9.3); NEUTROPHILS # (AUTO) 10.8 K/uL (1.8-7.7); NEUTROPHILS % (AUTO) 75.6 % (42.2-75.2); PLATELET COUNT (AUTO) 252 K/uL (140-450); RED BLOOD CELL COUNT(AUTO) 3.86 MIL/uL (4.20-6.10); RED CELL DISTRIBUTION WIDTH 13.8 % (11.6-13.7); WHITE BLOOD COUNT (AUTO) 14.2 K/uL (4.8-10.8)
[2023-08-27 06:36] LABS: ANION GAP 13.1 (8-16); CARBON DIOXIDE 23.7 mmol/L (21-32); CREATININE 0.7 mg/dL (0.6-1.3); POTASSIUM 3.8 mmol/L (3.5-5.1)
[2023-08-27 07:59] VITALS: O2SAT 97
[2023-08-27 08:20] VITALS: BP 146/75; PULSE 83; RESP 18; TEMP 98.9; O2SAT 97
[2023-08-27 08:21] VITALS: PULSE 83; RESP 18; O2SAT 97
[2023-08-27 16:11] VITALS: BP 137/85; PULSE 85; RESP 18; TEMP 98.9; O2SAT 97
[2023-08-27 20:00] VITALS: BP 139/87; PULSE 87; RESP 18; TEMP 98.7; O2SAT 98
[2023-08-28] MEDS: PIPERACILLIN/TAZOBACTAM 3.375 GM in DEXTROSE 5% 50 ML IV SCH ×2 (00:11→06:30)
[2023-08-28] MEDS ORDERED: MORPHINE SULFATE 4 MG/ML SYR IVP PRN (01:05)
[2023-08-28 04:00] VITALS: BP 137/82; PULSE 84; RESP 18; TEMP 97.8; O2SAT 97
[2023-08-28] MEDS: metroNIDAZOLE 500 MG/NS PREMIX 100 ML IV SCH (05:18)
[2023-08-28 06:30] LABS: BASOPHILS % (AUTO) 0.3 % (0.0-2.0); EOSINOPHILS % (AUTO) 0.5 % (0.0-4.0); HEMATOCRIT 34.7 % (36-52); LYMPHOCYTES % (AUTO) 21.6 % (20.5-51.1); MEAN CORPUSCULAR HEMOGLOBIN 31 pg (27-31); MEAN CORPUSCULAR HGB CONC 35 g/dL (33-37); MEAN CORPUSCULAR VOLUME 90.9 fL (80-94); MONOCYTES # (AUTO) 1.3 K/uL (0.8-1.0); MONOCYTES % (AUTO) 14.1 % (1.7-9.3); NEUTROPHILS # (AUTO) 5.8 K/uL (1.8-7.7); NEUTROPHILS % (AUTO) 63.5 % (42.2-75.2); PLATELET COUNT (AUTO) 259 K/uL (140-450); RED BLOOD CELL COUNT(AUTO) 3.81 MIL/uL (4.20-6.10); RED CELL DISTRIBUTION WIDTH 13.9 % (11.6-13.7); WHITE BLOOD COUNT (AUTO) 9.2 K/uL (4.8-10.8)
[2023-08-28 06:43] LABS: ANION GAP 11.7 (8-16); CARBON DIOXIDE 25.9 mmol/L (21-32); CREATININE 0.7 mg/dL (0.6-1.3); POTASSIUM 3.6 mmol/L (3.5-5.1)
[2023-08-28 08:00] VITALS: BP 125/74; PULSE 82; RESP 18; TEMP 97.9; O2SAT 97
[2023-08-28] MEDS ORDERED: METR-520 PO (08:41)
[2023-08-28] MEDS ORDERED: AMOX-999 PO (08:41)
[2023-08-28 10:35] VITALS: BP 125/74; PULSE 82; RESP 18; TEMP 97.9
[2023-08-28 11:40] VITALS: O2SAT 100
== END 2023-08-28 11:55 | disposition home or self-care (01) | DRG 872 ==
LOC: MED 16:44 → MMU 08-26 01:34 → MTU 08-26 02:00
PROVIDERS: ADMIT Family Medicine; ATTEND Family Medicine
DX: A41.9 Sepsis, unspecified organism (principal); N32.1 Vesicointestinal fistula; K57.32 Diverticulitis of large intestine without perforation or abscess without bleeding; E87.1 Hypo-osmolality and hyponatremia; E44.1 Mild protein-calorie malnutrition; N43.3 Hydrocele, unspecified; I86.1 Scrotal varices; N30.90 Cystitis, unspecified without hematuria; E87.6 Hypokalemia; N45.2 Orchitis; Z88.8 Allergy status to other drugs, medicaments and biological substances; Z79.899 Other long term (current) drug therapy; Z79.2 Long term (current) use of antibiotics; Z68.34 Body mass index [BMI] 34.0-34.9, adult
CPT/HCPCS: 36415; 76870; 80048; 80053; 81001; 83605; 83690; 83735; 85025; 87040; 87081; 87086; 96365; 96375; 99285; J1885; J2270; J2405; J2543; J3490; J7060; Q0092

== ENCOUNTER 2023-10-26 16:39 | Emergency (ER) | payer MEDICAID ==
[~2023-10-26] VITALS: Ht 175.3 cm; Wt 104.3 kg
[~2023-10-26 16:39] MED LIST changes: +AMOX-999 PO; -CEPH-588 PO; -CEPH500C16 PO; -DOXY-690 PO; -DOXY-745 PO; -IBUP-2213 PO; +METR-520 PO; -NAPR-54 PO; -PYR100 PO; -SULF-59 PO; -[UNRECOGNIZED DRUG - REMARK]
[2023-10-26 16:58] VITALS: BP 139/91; PULSE 89; RESP 18; TEMP 98; O2SAT 98
[2023-10-26] MEDS ORDERED: HYDR-2734 TP (18:45)
[2023-10-26] MEDS ORDERED: DOCU-299 PO (18:45)
[2023-10-26 19:00] VITALS: BP 130/88; PULSE 80; RESP 18; TEMP 98; O2SAT 99
== END 2023-10-26 19:00 | disposition home or self-care (01) ==
LOC: MED 16:39
DX: K64.4 Residual hemorrhoidal skin tags (principal); R03.0 Elevated blood-pressure reading, without diagnosis of hypertension; Z79.899 Other long term (current) drug therapy
CPT/HCPCS: 99282

== ENCOUNTER 2024-03-13 14:30 | Emergency (ER) | payer MEDICAID ==
[~2024-03-13] VITALS: Ht 172.7 cm; Wt 113.4 kg
[~2024-03-13 14:30] MED LIST changes: +DOCU-299 PO; +HYDR-2734 TP
[2024-03-13 14:31] VITALS: BP 129/77; PULSE 86; RESP 18; TEMP 97.5; O2SAT 99
[2024-03-13] MEDS ORDERED: PIPERACILLIN/TAZOBACTAM 3.375 GM VIAL IV ONE (15:07)
[2024-03-13] MEDS: MORPHINE SULFATE 4 MG/ML SYR IVP ONE (15:30)
[2024-03-13] MEDS: ONDANSETRON 4 MG/2 ML VIAL IVP ONE (15:37)
[2024-03-13] MEDS: PIPERACILLIN/TAZOBACTAM 3.375 GM in DEXTROSE 5% 50 ML IV ONE (15:40)
[2024-03-13 15:44] LABS: BASOPHILS # (AUTO) 0.1 K/uL (0.00-0.22); EOSINOPHILS # (AUTO) 0.2 K/uL (0-0.4); EOSINOPHILS % (AUTO) 1.6 % (0.0-4.0); HEMATOCRIT 40.4 % (36-52); HEMOGLOBIN 14.1 g/dL (12.0-18.0); LYMPHOCYTES # (AUTO) 2.8 K/uL (2.0-11.5); LYMPHOCYTES % (AUTO) 26.1 % (20.5-51.1); MEAN CORPUSCULAR HEMOGLOBIN 31 pg (27-31); MEAN CORPUSCULAR HGB CONC 35 g/dL (33-37); MEAN CORPUSCULAR VOLUME 87.1 fL (80-94); MONOCYTES # (AUTO) 0.9 K/uL (0.8-1.0); MONOCYTES % (AUTO) 8.1 % (1.7-9.3); NEUTROPHILS # (AUTO) 6.8 K/uL (1.8-7.7); NEUTROPHILS % (AUTO) 63.2 % (42.2-75.2); PLATELET COUNT (AUTO) 233 K/uL (140-450); RED BLOOD CELL COUNT(AUTO) 4.64 MIL/uL (4.20-6.10); RED CELL DISTRIBUTION WIDTH 14.7 % (11.6-13.7); WHITE BLOOD COUNT (AUTO) 10.8 K/uL (4.8-10.8)
[2024-03-13] MEDS: FLUORESCEIN OPTH STRIP 1 MG OP ONE (15:55)
[2024-03-13 16:14] LABS: ANION GAP 13.8 (8-16); CALCIUM 8.9 mg/dL (8.5-10.1); CREATININE 0.9 mg/dL (0.6-1.3); POTASSIUM 3.8 mmol/L (3.5-5.1)
[2024-03-13] MEDS ORDERED: SULF-59 PO (17:37)
[2024-03-13] MEDS ORDERED: AMOX875T3 PO (17:37)
[2024-03-13 18:00] VITALS: BP 113/64; PULSE 66; RESP 18; O2SAT 96
== END 2024-03-13 18:00 | disposition home or self-care (01) ==
LOC: MED 14:30
DX: L03.213 Periorbital cellulitis (principal); E11.9 Type 2 diabetes mellitus without complications; Z79.1 Long term (current) use of non-steroidal anti-inflammatories (NSAID); Z79.899 Other long term (current) drug therapy; Z88.8 Allergy status to other drugs, medicaments and biological substances
CPT/HCPCS: 36415; 70481; 80048; 85025; 85651; 86140; 90471; 90715; 96365; 96375; 99285; J2270; J2405; J2543; Q9967